=== PATIENT | female | born 1995 | race Caucasian/White ===

== ENCOUNTER 2019-09-14 17:22 | Emergency (ER) | payer OTHER ==
--- NOTE | 2019-09-14 17:42 | ER Document Report ---
ED Medical Screen (RME) - General Mode of Arrival: Ambulatory Information source: Patient <KEYLA MOLINARICIA - Last Filed: 09/14/19 17:43> <BELLA WATTS P - Last Filed: 09/14/19 22:08> - General Chief Complaint: Abnormal Lab Results Stated Complaint: ABNORMAL LABS Time Seen by Provider: 09/14/19 17:32 Notes: This 24-year-old diabetic patient presents to the emergency department with complaints of numbness and tingling to her left third fourth and fifth digit. Also reports unequal pupils. Reports the symptoms started today. Noticed the numbness this morning. Reports she was at work at [employer] and her boss noted that one pupil was small one pupil was larger. Left is greater than right. She denies trauma. Reports her solar energy specialist sent her to a power sewing machine operator because she has had fainting spells has not had one for weeks though. No other complaints such as fever vomiting diarrhea. Her is at her side and reports she is acting normal. I have greeted and performed a rapid initial assessment of this patient. A comprehensive ED assessment and evaluation of the patient, analysis of test results and completion of the medical decision making process will be conducted by additional ED providers. Dictation of this chart was performed using voice recognition software; therefore, there may be some unintended grammatical errors. (LASHAUN MOLINA) Course - Laboratory Result Diagrams: 09/14/19 18:04 09/14/19 18:04 <BELLA WATTS P - Last Filed: 09/14/19 22:08> - Laboratory Laboratory results interpreted by me: 09/14/19 09/14/19 09/14/19 17:42 18:04 19:38 Glucose 249 H POC Glucose 250 H Urine Protein 30 H Urine Glucose (UA) >=500 H Urine Ketones TRACE H Urine Urobilinogen 4.0 H
[2019-09-14 18:14] LABS: ABSOLUTE BASOPHILS # (AUTO) 0.1 10^3/uL (0.0-0.2); ABSOLUTE EOSINOPHILS # (AUTO) 0.3 10^3/uL (0.0-0.6); ABSOLUTE LYMPHOCYTES (AUTO) 2.3 10^3/uL (0.5-4.7); ABSOLUTE MONOCYTES (AUTO) 0.6 10^3/uL (0.1-1.4); ABSOLUTE NEUT (AUTO) 5.3 10^3/uL (1.7-8.2); BASOPHILS % (AUTO) 0.8 % (0-2); EOSINOPHILS % (AUTO) 3.9 % (0-6); HEMATOCRIT 43.8 % (36.0-47.0); HEMOGLOBIN 15.1 g/dL (12.0-15.5); LYMPHOCYTES % (AUTO) 26.3 % (13-45); MEAN CORPUSCULAR HEMOGLOBIN 30.2 pg (27.0-33.4); MEAN CORPUSCULAR HGB CONC 34.4 g/dL (32.0-36.0); MEAN CORPUSCULAR VOLUME 88 fl (80-97); MONOCYTES % (AUTO) 7.2 % (3-13); PLATELET COUNT 205 10^3/uL (150-450); RED CELL DISTRIBUTION WIDTH 12.8 % (11.5-14.0); SEGMENTED NEUTROPHILS % (AUTO) 61.8 % (42-78); TOTAL CELLS COUNTED % (AUTO) 100 %; WHITE BLOOD COUNT 8.6 10^3/uL (4.0-10.5)
[2019-09-14 18:57] LABS: ALBUMIN 4.2 g/dL (3.5-5.0); ALKALINE PHOSPHATASE 73 U/L (38-126); ANION GAP 10 (5-19); ASPARTATE AMINO TRANSFERASE 15 U/L (14-36); BILIRUBIN,DIRECT 0.2 mg/dL (0.0-0.4); BILIRUBIN,TOTAL 0.4 mg/dL (0.2-1.3); BLOOD UREA NITROGEN 11 mg/dL (7-20); CALCIUM 9.5 mg/dL (8.4-10.2); CARBON DIOXIDE 26 mmol/L (22-30); CHLORIDE 105 mmol/L (98-107); GLUCOSE 249 mg/dL (75-110); POTASSIUM 3.9 mmol/L (3.6-5.0); TOTAL PROTEIN 7.2 g/dL (6.3-8.2)
--- NOTE | 2019-09-14 18:58 | ER Document Report ---
ED General - General Chief Complaint: Abnormal Lab Results Stated Complaint: ABNORMAL LABS Time Seen by Provider: 09/14/19 17:32 Primary Care Provider: ELINA KEITH JR, MD [Primary Care Provider] - Follow up as needed Mode of Arrival: Ambulatory Notes: 24 year old female long standing diabetic - since 19 months of age - is here with pupil irregularity. Her coworkers at work noted left pupil to be larger than right and along with tingling of left 5th and 4th and middle finger felt she needed a rapid evaluation and sent her to the ED. She has had no trauma and no headache and no weakness. She is currently undergoing a workup for POTS and is due for an echocardiogram tomorrow. - HPI Onset: This morning Onset/Duration: Gradual Severity: Moderate Exacerbated by: Denies - Related Data Allergies/Adverse Reactions: cefdinir Allergy (Verified 09/14/19 17:40) Home Medications: humalog. lantus Past Medical History - General Information source: Patient - Social History Smoking Status: Never Smoker Chew tobacco use (# tins/day): No Frequency of alcohol use: None Drug Abuse: None Family History: Reviewed & Not Pertinent Patient has suicidal ideation: No Patient has homicidal ideation: No Review of Systems - Review of Systems Constitutional: No symptoms reported EENT: No symptoms reported Cardiovascular: No symptoms reported Respiratory: No symptoms reported Gastrointestinal: No symptoms reported Genitourinary: No symptoms reported Female Genitourinary: No symptoms reported Musculoskeletal: No symptoms reported Skin: No symptoms reported Hematologic/Lymphatic: No symptoms reported Neurological/Psychological: No symptoms reported Physical Exam - Vital signs Vitals: Temp Pulse Resp BP Pulse Ox 98.5 F 73 14 104/68 100 09/14/19 22:44 09/14/19 22:44 09/14/19 22:44 09/14/19 22:44 09/14/19 22:44 Interpretation: Normal - General General appearance: Appears well, Alert - HEENT Head: Normocephalic, Atraumatic Eyes: Normal Pupils: Dilated - left pupil is perhaps 5 mm and reactive and right is a bit smaller perhaps 4mm and reactive - Respiratory Respiratory status: No respiratory distress Chest status: Nontender Breath sounds: Normal Chest palpation: Normal - Cardiovascular Rhythm: Regular Heart sounds: Normal auscultation Murmur: No - Abdominal Inspection: Normal Distension: No distension Bowel sounds: Normal Tenderness: Nontender Organomegaly: No organomegaly - Back Back: Normal, Nontender - Extremities General upper extremity: Normal inspection, Nontender, Normal color, Normal ROM, Normal temperature General lower extremity: Normal inspection, Nontender, Normal color, Normal ROM, Normal temperature, Normal weight bearing. No: Ludmila's sign - Neurological Neuro grossly intact: Yes Cognition: Normal Orientation: AAOx4 [place] Coma Scale Eye Opening: Spontaneous Raquel Coma Scale Verbal: Oriented Raquel Coma Scale Motor: Obeys Commands Raquel Coma Scale Total: 15 Speech: Normal Motor strength normal: LUE, RUE, LLE, RLE Sensory: Normal - Psychological Associated symptoms: Normal affect, Normal mood - Skin Skin Temperature: Warm Skin Moisture: Dry Skin Color: Normal Course - Vital Signs Vital signs: Temp Pulse Resp BP Pulse Ox 98.5 F 73 14 104/68 100 09/14/19 22:44 09/14/19 22:44 09/14/19 22:44 09/14/19 22:44 09/14/19 22:44 - Laboratory Result Diagrams: 09/14/19 18:04 09/14/19 18:04 Laboratory results interpreted by me: 09/14/19 09/14/19 09/14/19 17:42 18:04 19:38 Glucose 249 H POC Glucose 250 H Urine Protein 30 H Urine Glucose (UA) >=500 H Urine Ketones TRACE H Urine Urobilinogen 4.0 H - Diagnostic Test Radiology reviewed: Reports reviewed Discharge - Discharge Clinical Impression: Anisocoria Sinusitis Qualifiers: Sinusitis location: sphenoidal Chronicity: acute Recurrence: non-recurrent Qualified Code(s): J01.30 - Acute sphenoidal sinusitis, unspecified Condition: Good Disposition: HOME, SELF-CARE Instructions: Diabetes ([facility]), Control of Diabetes During Illness ([facility]), Weakness ([facility]) Additional Instructions: Rest, fluids, medicines as directed. Please return here for any problems or any concerns. Keep your follow up for the echocardiogram tomorrow. Prescriptions: Amoxicillin 1 tab PO TID #30 tab Referrals: ELINA KEITH JR, MD [Primary Care Provider] - Follow up as needed
[2019-09-14 19:53] LABS: APPEARANCE,URINE SLIGHTLY-CLOUDY; BILIRUBIN,URINE NEGATIVE (NEGATIVE); COLOR,URINE YELLOW; GLUCOSE, URINE >=500 mg/dL (NEGATIVE); KETONES,URINE TRACE mg/dL (NEGATIVE); LEUKOCYTE ESTERASE,URINE NEGATIVE (NEGATIVE); NITRITE,URINE NEGATIVE (NEGATIVE); PROTEIN,URINE 30 mg/dL (NEGATIVE); URINE SPECIFIC GRAVITY 1.036
--- NOTE | 2019-09-14 19:53 | RADIOLOGY REPORT (SQ) ---
EXAM DESCRIPTION: CT HEAD WITHOUT COMPLETED DATE/TIME: 09/14/2019 7:38 pm REASON FOR STUDY: dizzy COMPARISON: None. TECHNIQUE: Axial images acquired through the brain without intravenous contrast. Images reviewed wit h bone, brain and subdural windows. Images stored on PACS. All CT scanners at this facility use dose modulation, iterative reconstruction, and/or weight based d osing when appropriate to reduce radiation dose to as low as reasonably achievable (ALARA). [facility]: Dose Right [facility]: CareDose [facility]: Dose Right [facility]: Teradose 4D [facility]: Pumpic RADIATION DOSE: CT Rad equipment meets quality standard of care and radiation dose reduction techniq ues were employed. CTDIvol: 53.2 mGy. DLP: 1097 mGy-cm.. LIMITATIONS: None. FINDINGS: VENTRICLES: Normal size and contour. CEREBRUM: No masses. No hemorrhage. No midline shift. Age appropriate white matter. No evidence for a cute infarction. CEREBELLUM: No masses. No hemorrhage. No alteration of density. No evidence for acute infarction. EXTRA-AXIAL SPACES: No fluid collections. ORBITS AND GLOBE: No intra- or extraconal masses. Normal contour of globe without masses. CALVARIUM: No fracture. PARANASAL SINUSES: Right sphenoid sinus fluid. SOFT TISSUES: No mass or hematoma. OTHER: No other significant finding. IMPRESSION: NO ACUTE INTRACRANIAL FINDINGS.Right sphenoid sinus fluid. EVIDENCE OF ACUTE STROKE: NO. TECHNICAL DOCUMENTATION: JOB ID: [id number] [id number] Quality ID # [id number]: Final reports with documentation of one or more dose reduction techniques (e.g., Au tomated exposure control, adjustment of the mA and/or kV according to patient size, use of iterative reconstruction technique) 2010 [employer]- All Rights Reserved Reading location - IP/workstation name: [employer]
[2019-09-14] MEDS ORDERED: AMOXICILLIN TRIHYDRATE 500 MG CAPSULE PO ONE (22:17)
[2019-09-14 22:47] VITALS: BP 104/68
== END 2019-09-14 22:44 | disposition home or self-care (01) ==
LOC: ER 17:22
DX: H57.02 Anisocoria (principal); R20.0 Anesthesia of skin; E11.9 Type 2 diabetes mellitus without complications; Z79.4 Long term (current) use of insulin
CPT/HCPCS: 36415; 70450; 80053; 81001; 81025; 82962; 84443; 85025

== ENCOUNTER → 2020-05-28 | Outpatient (CLI) | payer OTHER ==
[2020-05-28 20:16] LABS: ANION GAP 9 (5-19); BLOOD UREA NITROGEN 13 mg/dL (7-20); CALCIUM 9.1 mg/dL (8.4-10.2); CARBON DIOXIDE 24 mmol/L (22-30); CHLORIDE 100 mmol/L (98-107); POTASSIUM 4.3 mmol/L (3.6-5.0)
[2020-05-28 20:18] LABS: GLUCOSE 484 mg/dL (75-110)
== END ==
LOC: OD 15:20
PROVIDERS: ATTEND Family Medicine
DX: E06.3 Autoimmune thyroiditis (principal); E10.9 Type 1 diabetes mellitus without complications
CPT/HCPCS: 36415; 80048; 82043; 82570; 83036; 84443

== ENCOUNTER 2020-08-22 00:50 | Emergency (ER) | payer OTHER ==
--- NOTE | 2020-08-22 01:11 | ER Document Report ---
ED Medical Screen (RME) - General Chief Complaint: High Blood Sugar Stated Complaint: BLOOD SUGAR ISSUES Time Seen by Provider: 08/22/20 01:08 Primary Care Provider: JOURDAN HERNANDEZ MD [Primary Care Provider] - Follow up as needed Mode of Arrival: Ambulatory Information source: Patient Notes: 25-year-old type I diabetic with history of POTS coming in tonight with hypersomnolence. having a hard time getting her to wake up. She is having chest pain and shortness of breath tonight. General: Sedated Cardio regular rate and rhythm Pulmonary no distress Abdomen nondistended Neuro no focal deficits I have greeted and performed a rapid initial assessment of this patient. A comprehensive ED assessment and evaluation of the patient, analysis of test r esults and completion of the medical decision making process will be conducted by additional ED providers. - Related Data Allergies/Adverse Reactions: cefdinir Allergy (Verified 09/14/19 17:40) Doctor's Discharge - Discharge Referrals: JOURDAN HERNANDEZ MD [Primary Care Provider] - Follow up as needed
[2020-08-22] MEDS ORDERED: NORMAL SALINE 1000 ML 1,000 ML IV ONE (01:13)
--- NOTE | 2020-08-22 01:49 | RADIOLOGY REPORT (SQ) ---
EXAM DESCRIPTION: XR CHEST 1 VIEW COMPLETED DATE/TME: 08/22/2020 01:09 CLINICAL INDICATION: 25-year-old female with chest pain. TECHNIQUE: Single view, AP portable chest was obtained. COMPARISON: None. FINDINGS: Unremarkable cardiac and mediastinal silhouette. Heart size is normal. Lungs are clear without focal opacity, pneumothorax or pleural effusions. The visualized bones are within normal limits. IMPRESSION: No acute cardiopulmonary abnormalities.
[2020-08-22 02:04] LABS: APPEARANCE,URINE CLEAR; BILIRUBIN,URINE NEGATIVE (NEGATIVE); COLOR,URINE YELLOW; GLUCOSE, URINE >=500 mg/dL (NEGATIVE); KETONES,URINE NEGATIVE (NEGATIVE); PROTEIN,URINE 30 mg/dL (NEGATIVE); URINE SPECIFIC GRAVITY 1.029; UROBILINOGEN,URINE NEGATIVE mg/dL (<2.0)
[2020-08-22 02:05] LABS: VENOUS BLOOD BASE EXCESS -2.8 mmol/L; VENOUS BLOOD HCO3 21.2 mmol/L (20-32); VENOUS BLOOD PCO2 34.7 mmHg (35-63); VENOUS BLOOD PH 7.4 (7.30-7.42)
[2020-08-22 02:16] LABS: ABSOLUTE BASOPHILS # (AUTO) 0.1 10^3/uL (0.0-0.2); ABSOLUTE EOSINOPHILS # (AUTO) 0.6 10^3/uL (0.0-0.6); ABSOLUTE LYMPHOCYTES (AUTO) 2.8 10^3/uL (0.5-4.7); ABSOLUTE MONOCYTES (AUTO) 0.7 10^3/uL (0.1-1.4); ABSOLUTE NEUT (AUTO) 4.1 10^3/uL (1.7-8.2); BASOPHILS % (AUTO) 0.9 % (0-2); EOSINOPHILS % (AUTO) 7.2 % (0-6); HEMATOCRIT 43.9 % (36.0-47.0); HEMOGLOBIN 15.5 g/dL (12.0-15.5); LYMPHOCYTES % (AUTO) 33.3 % (13-45); MEAN CORPUSCULAR HGB CONC 35.2 g/dL (32.0-36.0); MEAN CORPUSCULAR VOLUME 85 fl (80-97); PLATELET COUNT 208 10^3/uL (150-450); RED BLOOD COUNT 5.15 10^6/uL (3.72-5.28); RED CELL DISTRIBUTION WIDTH 12.9 % (11.5-14.0); SEGMENTED NEUTROPHILS % (AUTO) 49.6 % (42-78); TOTAL CELLS COUNTED % (AUTO) 100 %; WHITE BLOOD COUNT 8.3 10^3/uL (4.0-10.5)
[2020-08-22 02:25] LABS: ALCOHOL < 10 mg/dL (NONE DETECTED); ALKALINE PHOSPHATASE 88 U/L (38-126); ANION GAP 12 (5-19); ASPARTATE AMINO TRANSFERASE 16 U/L (14-36); BILIRUBIN,DIRECT 0.2 mg/dL (0.0-0.4); BILIRUBIN,TOTAL 0.5 mg/dL (0.2-1.3); BLOOD UREA NITROGEN 11 mg/dL (7-20); CALCIUM 9.7 mg/dL (8.4-10.2); CARBON DIOXIDE 21 mmol/L (22-30); CHLORIDE 106 mmol/L (98-107); GLUCOSE 153 mg/dL (75-110); POTASSIUM 3.7 mmol/L (3.6-5.0); TOTAL PROTEIN 6.8 g/dL (6.3-8.2)
[2020-08-22 02:35] LABS: URINE AMPHETAMINES SCREEN NEGATIVE; URINE BARBITURATES SCREEN NEGATIVE; URINE BENZODIAZEPINES SCREEN NEGATIVE; URINE COCAINE SCREEN NEGATIVE; URINE MARIJUANA (THC) SCREEN NEGATIVE; URINE METHADONE SCREEN NEGATIVE; URINE PHENCYCLIDINE SCREEN NEGATIVE
--- NOTE | 2020-08-22 06:55 | ER Document Report ---
ED General - General Chief Complaint: Near Syncope Stated Complaint: BLOOD SUGAR ISSUES Time Seen by Provider: 08/22/20 01:08 Primary Care Provider: JOURDAN HERNANDEZ MD [Primary Care Provider] - Follow up as needed Mode of Arrival: Ambulatory - [facility] Notes: Patient is a 25-year-old female with a past medical history of POTS, type 1 diabetes, Jose's who presents with an episode of hypersomnolence. Patient states she felt fine before bed. Her tried to wake her up in the middle of the night and she was difficult to arouse. Patient also states that she had some chest pain and shortness of breath during this episode. Patient states that she heard her calling her name but was unable to get up. Currently, patient states she feels back to normal. She is resting comfortably. She is denying any chest pain or shortness of breath. No abdominal pain. No nausea, vomiting, headaches, chest pain. Patient has been compliant with her insulin. She does insulin injections. She denies taking any sleeping medicine or any new medicines prior to going to bed. - Related Data Allergies/Adverse Reactions: cefdinir Allergy (Verified 09/14/19 17:40) Home Medications: propranolol, humalog, lantus, vitamin d, allergy med Past Medical History - General Information source: Patient - Social History Smoking Status: Never Smoker Family History: Reviewed & Not Pertinent Endocrine Medical History: Reports: Hx Diabetes Mellitus Type 1 Review of Systems - Review of Systems Notes: CONSTITUTIONAL: No fever. Positive for fatigue. SKIN: No rash. HENT: No congestion, ear pain, or sore throat. EYES: No recent vision problems or eye pain. CARDIOVASCULAR: No chest pain or edema. RESPIRATORY: No cough, shortness of breath, congestion, or wheezing. GASTROINTESTINAL: No abdominal pain, nausea, vomiting, bloody stools or diarrhea. GENITOURINARY: No dysuria. MUSCULOSKELETAL: No joint pain or swelling. LYMPHATIC: No swollen glands. NEUROLOGIC: No seizures. No headache, focal weakness or sensory changes. HEMATOLOGIC: No unusual bruising or bleeding. PSYCHIATRIC: No depression or anxiety. Physical Exam - Vital signs Vitals: Temp Pulse Resp BP Pulse Ox 97.8 F 74 16 118/82 100 08/22/20 01:25 08/22/20 01:25 08/22/20 01:25 08/22/20 01:25 08/22/20 01:25 - General General appearance: Appears well Notes: VITAL SIGNS: Within normal limits. GENERAL: No acute distress, non-toxic appearance. HEAD: Normal with no signs of head trauma. EYES: EOMI, conjunctiva normal, no discharge. EARS: Hearing grossly intact. NOSE: Normal. NECK: Normal range of motion, no tenderness, supple, no lymphadenopathy, No adenopathy, no JVD. No obvious goiter palpated. CHEST: Clear breath sounds bilaterally. No wheezes, rales, or rhonchi. CARDIAC: Regular rate and rhythm. S1 and S2, without murmurs, gallops, or rubs. VASCULAR: No Edema. ABDOMEN: Normal and soft with no tenderness, no masses or pulsatile masses. GENITOURINARY: Normal, No tenderness LYMPATHTIC: No lymphadenopathy noted. MUSCULOSKELETAL: Good range of motion of all major joints. Extremities without clubbing, cyanosis or edema. NEUROLOGICAL: Alert and oriented x 3. No focal sensory or strength deficits. Speech normal. Follows commands appropriately. PSYCHIATRIC: Normal Affect, judgement and mood. SKIN: Normal appearance with no rashes or lesions. Course - Re-evaluation Re-evalutation: 08/22/20 07:23 Patient appears well on exam. Her lab work was reviewed. She has no evidence for DKA. Patient states she feels back to normal. She does have an elevated TSH. I discussed with her and she states she has a history of Jose's but was taken off her medicines because her levels were normal. Patient states she made an appointment with endocrinology but is unable to get in until November. I discussed with patient's primary care doctor, Dr. Hernandez, who stated that her last TSH in April was normal. Patient does have an appointment with Dr. Hernandez today. I informed her that she needs to call endocrine and possibly see if she can get a sooner appointment. She can also discuss this with her family doctor who I made aware of the lab value. Patient is very agreeable to this. She states she feels completely back to normal and would like to go home. I did give patient strict return precautions and she and her are in agreement. - Vital Signs Vital signs: Temp Pulse Resp BP Pulse Ox 97.8 F 74 16 118/82 100 08/22/20 01:25 08/22/20 01:25 08/22/20 01:25 08/22/20 01:25 08/22/20 01:25 - Laboratory Result Diagrams: 08/22/20 01:40 08/22/20 01:40 Laboratory results interpreted by me: 08/22/20 08/22/20 08/22/20 01:40 01:40 01:40 Eos % (Auto) 7.2 H VBG pCO2 34.7 L Carbon Dioxide 21 L Creatinine 0.50 L Glucose 153 H POC Glucose TSH Urine Protein Urine Glucose (UA) 08/22/20 08/22/20 08/22/20 01:40 01:40 03:05 Eos % (Auto) VBG pCO2 Carbon Dioxide Creatinine Glucose POC Glucose 58 L TSH 8.36 H Urine Protein 30 H Urine Glucose (UA) >=500 H 08/22/20 08/22/20 03:44 05:34 Eos % (Auto) VBG pCO2 Carbon Dioxide Creatinine Glucose POC Glucose 126 H 204 H TSH Urine Protein Urine Glucose (UA) - Diagnostic Test Radiology reviewed: Image reviewed, Reports reviewed - EKG Interpretation by Me EKG shows normal: Sinus rhythm Rate: Normal Additional EKG results interpreted by me: 08/22/20 06:55 Sinus rhythm at a rate of 75. QTc 429. Inverted T waves in V1 through V3. No previous EKG available for comparison. Discharge - Discharge Clinical Impression: Elevated TSH, Hypersomnolence Condition: Stable Disposition: HOME, SELF-CARE Instructions: Fatigue ([facility]), Chest Pain of Unclear Cause ([facility]) Additional Instructions: Please follow-up with your family doctor. You have an appointment today. I let her know that you have an elevated TSH and may need to be restarted on your medicines. Please call endocrinology to see if he can get a sooner appointment as well. Return to the ER for any return of symptoms, chest pain, shortness of breath, fevers, any other concerning signs. Referrals: JOURDAN HERNANDEZ MD [Primary Care Provider] - Follow up in 3-5 days
[2020-08-22 07:42] VITALS: BP 107/73
--- NOTE | 2020-08-22 16:21 | EKG REPORT ---
SEVERITY:- ABNORMAL ECG - SINUS RHYTHM NONSPECIFIC T ABNORMALITIES, ANTERIOR LEADS : Confirmed by: Titus Zambrano MD 22-Aug-2020 16:20:28
== END 2020-08-22 07:42 | disposition home or self-care (01) ==
LOC: ER 00:50
DX: E06.3 Autoimmune thyroiditis (principal); G47.10 Hypersomnia, unspecified; E10.9 Type 1 diabetes mellitus without complications; Z79.4 Long term (current) use of insulin; Z86.79 Personal history of other diseases of the circulatory system; Z79.899 Other long term (current) drug therapy; Z88.1 Allergy status to other antibiotic agents
CPT/HCPCS: 36415; 71045; 80053; 80307; 81001; 82803; 82962; 84443; 84484; 84703; 85025; 93005; 93010; 99285